=== PATIENT | female | born 1985 | race African-American/Black ===

== ENCOUNTER 2017-08-31 02:55 | Inpatient (IN) | payer OTHER ==
[~2017-08-31] VITALS: Ht 160 cm; Wt 96.2 kg
[2017-08-31] MEDS ORDERED: PNV1TABL76 PO (02:59)
[2017-08-31] MEDS ORDERED: TERBUTALINE SULFATE 1MG/ML VIAL SUBCUT PRN (03:00)
[2017-08-31] MEDS ORDERED: LACTATED RINGERS 1,000 ML IV SCH (03:04)
[2017-08-31] MEDS ORDERED: DEXT 5%/LACTATED RINGERS 1,000 ML IV SCH (03:04)
[2017-08-31] MEDS ORDERED: RHO(D) IMMUNE GLOBULIN 300 MCG/SYR IM PRN ×2 (03:15→08:15)
[2017-08-31] MEDS ORDERED: LIDOCAINE HCL 1% 20ML VIAL (Pyxis) INJ INFIL PRN (03:15)
[2017-08-31] MEDS ORDERED: MISOPROSTOL 100MCG TABLET VG PRN (03:15)
[2017-08-31] MEDS ORDERED: METHYLERGONOVINE MALEATE 0.2 MG/ML IM PRN (03:15)
[2017-08-31] MEDS ORDERED: BUTORPHANOL TARTRATE 2 MG/ML VIAL IV PRN ×2 (03:15→08:30)
[2017-08-31] MEDS ORDERED: CARBOPROST TROMETHAMINE 250 MCG/ML AMPUL IM PRN (03:15)
[2017-08-31] MEDS ORDERED: NALOXONE HCL 0.4 MG/ML 1ML VIAL IM PRN (03:15)
[2017-08-31] MEDS ORDERED: PENICILLIN G POTASSIUM 5 MMU in DEXT 5% WATER 100 ML IV NR (04:00)
[2017-08-31] MEDS ORDERED: PRED10DR OP (04:39)
[2017-08-31] MEDS ORDERED: ONDANSETRON HCL 4MG/2ML VIAL ONE (05:06)
[2017-08-31] MEDS ORDERED: EPHEDRINE SULFATE 50MG/ML VIAL ONE (05:06)
[2017-08-31] MEDS ORDERED: OXYTOCIN 10 UNITS/ML 1ML ONE (05:06)
[2017-08-31] MEDS ORDERED: CEFAZOLIN SODIUM 1000MG/VIAL ONE (05:06)
[2017-08-31] MEDS ORDERED: KETOROLAC 60MG/2ML VIAL IM ONE (05:06)
[2017-08-31] MEDS ORDERED: SODIUM CHLORIDE 0.9% 10ML VIAL ONE (05:06)
[2017-08-31] MEDS ORDERED: MORPHINE SULFATE/PF 1MG/ML 10ML AMP ONE (05:09)
[2017-08-31] MEDS ORDERED: FENTANYL CITRATE/PF 50MCG/ML 2ML VIAL ONE (05:09)
[2017-08-31 05:19] LABS: CLARITY URINE CLEAR (CLEAR); COLOR URINE DARK YELLOW (YELLOW); GLUCOSE URINE NEGATIVE (NEGATIVE); KETONES URINE NEGATIVE (NEGATIVE); LEUKOCYTE ESTERASE URINE NEGATIVE (NEGATIVE); NITRITE URINE NEGATIVE (NEGATIVE); OCCULT BLOOD URINE NEGATIVE (NEGATIVE); PROTEIN URINE TRACE (NEGATIVE); SPECIFIC GRAVITY URINE 1.029 (1.005-1.030)
[2017-08-31 05:21] LABS: INR 1.1; PARTIAL THROMBOPLASTIN TIME 27.5 sec (23.4-31.0)
[2017-08-31] MEDS ORDERED: IRON-1 PO (05:22)
[2017-08-31] MEDS ORDERED: FISH1CAP2 PO (05:22)
[2017-08-31] MEDS ORDERED: OCD PO (05:22)
[2017-08-31 05:24] LABS: BASOPHILS % 0.7 % (0.0-2.0); EOSINOPHILS % 0.5 % (0.0-5.0); HEMATOCRIT. 32.2 % (36.0-48.0); HEMOGLOBIN. 10.6 g/dL (12.0-16.0); LYMPHOCYTES % 20.9 % (20.0-50.0); MEAN CORPUSCULAR HEMOGLOBIN 29.9 pg (28.0-32.0); MEAN CORPUSCULAR VOLUME 90.8 fL (81.0-99.0); MONOCYTES % 6.9 % (2.0-8.0); PLATELET 215 x1000/uL (130-400); RED BLOOD CELL COUNT 3.55 mill/uL (4.2-5.4); RED CELL DISTRIBUTION WIDTH 13.5 % (11.6-14.6)
[2017-08-31 05:32] LABS: *AMPHETAMINES SCREEN URINE NEGATIVE (NEGATIVE); *BARBITURATES SCREEN URINE NEGATIVE (NEGATIVE); *BENZODIAZEPINES SCREEN URINE NEGATIVE (NEGATIVE); *COCAINE SCREEN URINE NEGATIVE (NEGATIVE); CANNABINOID URINE SCREEN NEGATIVE (NEGATIVE); METHADONE URINE SCREEN NEGATIVE (NEGATIVE); OPIATES URINE SCREEN NEGATIVE (NEGATIVE); PHENCYCLIDINE URINE SCREEN NEGATIVE (NEGATIVE)
[2017-08-31 05:40] LABS: CARBON DIOXIDE 23 mEq/L (21-32); CHLORIDE 105 mEq/L (98-107)
[2017-08-31] MEDS ORDERED: DIPHENHYDRAMINE 50MG/ML VIAL ONE (07:36)
[2017-08-31 07:52] LABS: HEPATITIS B SURFACE ANTIGEN NEGATIVE; RUBELLA IGG 276.9 IU/mL (4.99-10)
[2017-08-31] MEDS ORDERED: PENICILLIN G POTASSIUM 2.5 MMU in DEXTROSE 5% WATER 50 ML IV SCH (08:00)
[2017-08-31] MEDS ORDERED: DEXT 5%/LR + PITOCIN 20UNITS/L 1,000 ML IV SCH (08:06)
[2017-08-31] MEDS ORDERED: ONDANSETRON HCL 4MG/2ML VIAL IV PRN ×2 (08:15→08:30)
[2017-08-31] MEDS ORDERED: LANOLIN OINT 0.25 GM TUBE TOP PRN (08:15)
[2017-08-31] MEDS ORDERED: NALOXONE HCL 0.4 MG/ML 1ML VIAL IV PRN (08:30)
[2017-08-31] MEDS ORDERED: DIPHENHYDRAMINE 50MG/ML VIAL IV PRN (08:30)
[2017-08-31] MEDS ORDERED: PRENATAL VIT/FE FUMARATE/FA TABLET PO SCH (09:00)
[2017-08-31 11:20] VITALS: BP 120/79
[2017-08-31 12:30] VITALS: BP 127/76
[2017-08-31 14:00] VITALS: BP 119/55
[2017-08-31 15:41] VITALS: BP 108/61
[2017-08-31] MEDS: KETOROLAC 30MG/ML VIAL IV PRN ×2 (17:53→23:47)
[2017-08-31 19:45] VITALS: BP 115/73
[2017-08-31] MEDS ORDERED: DOCUSATE SODIUM 100MG CAPSULE PO SCH (21:00)
[2017-08-31 23:45] VITALS: BP 117/69
[2017-09-01] MEDS: KETOROLAC 30MG/ML VIAL IV PRN (05:26)
[2017-09-01 05:28] VITALS: BP 128/79
[2017-09-01 07:04] LABS: BASOPHILS % 0.2 % (0.0-2.0); EOSINOPHILS % 0.6 % (0.0-5.0); HEMATOCRIT. 25.7 % (36.0-48.0); HEMOGLOBIN. 8.8 g/dL (12.0-16.0); LYMPHOCYTES % 16.8 % (20.0-50.0); MEAN CORPUSCULAR HEMOGLOBIN 31.2 pg (28.0-32.0); MEAN CORPUSCULAR VOLUME 91.5 fL (81.0-99.0); MEAN PLATELET VOLUME 8.3 fl (7.4-10.4); MONOCYTES % 6.3 % (2.0-8.0); NEUTROPHILS % 76.1 % (40.0-76.0); PLATELET 172 x1000/uL (130-400); RED BLOOD CELL COUNT 2.81 mill/uL (4.2-5.4); RED CELL DISTRIBUTION WIDTH 13.8 % (11.6-14.6)
[2017-09-01 08:00] VITALS: BP 120/69
[2017-09-01] MEDS: IBUPROFEN 400MG TABLET PO PRN ×2 (09:20→16:14)
[2017-09-01] MEDS: HYDROCODONE/ACETAMINOPHEN 5/325MG TABLET PO PRN ×3 (09:20→22:00)
[2017-09-01 12:00] VITALS: BP 116/67
[2017-09-01 16:00] VITALS: BP 118/67
[2017-09-01 20:00] VITALS: BP 119/75
[2017-09-02] VITALS: BP 120/67
[2017-09-02] MEDS: IBUPROFEN 800MG TABLET PO PRN ×2 (03:58→13:19)
[2017-09-02 04:17] VITALS: BP 124/73
[2017-09-02 08:30] VITALS: BP 124/67
[2017-09-02] MEDS ORDERED: BISACODYL 10MG SUPP PR SCH (08:45)
[2017-09-02] MEDS: HYDROCODONE/ACETAMINOPHEN 5/325MG TABLET PO PRN ×3 (09:16→18:37)
[2017-09-02 17:32] VITALS: BP 118/76
== END 2017-09-02 19:35 | disposition home or self-care (01) | DRG 765 ==
LOC: OBSVTOIN 02:55 → L&D 02:55 → 7EST PP/OB 11:24
PROVIDERS: ADMIT Obstetrics & Gynecology; ATTEND Obstetrics & Gynecology
PROC: 30233S1 Transfusion of Nonautologous Globulin into Peripheral Vein, Percutaneous Approach (ICD-10-PCS; 2017-08-31)
PROC: 10D00Z1 Extraction of Products of Conception, Low, Open Approach (ICD-10-PCS; principal; 2017-08-31 06:10)
DX: O32.1XX0 Maternal care for breech presentation, not applicable or unspecified (principal); O60.14X0 Preterm labor third trimester with preterm delivery third trimester, not applicable or unspecified; D64.9 Anemia, unspecified; O42.913 Preterm premature rupture of membranes, unspecified as to length of time between rupture and onset of labor, third trimester; O99.02 Anemia complicating childbirth; Z3A.35 35 weeks gestation of pregnancy; Z37.0 Single live birth
CPT/HCPCS: 36415; 76805; 76818; 80053; 80305; 81001; 85025; 85610; 85730; 86592; 86703; 86762; 86850; 86870; 86886; 86900; 86920; 87340; 88307; 90384; A4216; J0171; J0690; J1200; J1885; J2274; J2405; J2540; J2590; J3010; J3105; J7060; J7120; A4315